=== PATIENT | female | born 1955 | race Caucasian/White ===

== ENCOUNTER 2024-08-20 10:52 | Outpatient (CLI) | payer MEDICARE ==
[2024-08-20 11:51] LABS: #Basophils 0.07 10x3/uL (0.0-0.2); #Eosinophils 0.31 10x3/uL (0.0-0.5); #Monocytes 0.52 10x3/uL (0.0-1.1); #Neutrophils 2.42 10x3/uL (1.5-8.4); %Basophils 1.3 % (0.0-2.0); %Eosinophils 5.7 % (0.0-6.0); %Lymphocytes 38.5 % (18.0-47.0); %Monocytes 9.5 % (0.0-10.0); %Neutrophils 44.3 % (40.0-75.0); Hematocrit 41.1 % (34.9-44.5); Hemoglobin 13.4 g/dL (12.0-15.5); Mean Corpuscular HGB CONC 32.6 g/dL (32.0-36.0); Mean Corpuscular Hemoglobin 30.5 pg (27.0-33.0); Mean Corpuscular Volume 93.4 fL (81.6-98.3); Mean Platelet Volume 9.3 fL (7.4-10.4); Platelet Count 243 10x3/uL (150-450); RBC Distribution Width 13.2 % (11.5-14.5); White Blood Cell (WBC) Count 5.5 10x3/uL (3.5-10.5)
[2024-08-20 12:06] LABS: Anion Gap 12 mmol/L (10-20); BUN (Urea Nitrogen) 16 mg/dL (9.8-20.1); Calc. Creatinine Clearance 0 mL/min (70-130); Calcium 9.9 mg/dL (7.8-10.44); Carbon Dioxide 26 mmol/L (23-31); Chloride 108 mmol/L (98-107); Estimated GFR 95; Glucose 82 mg/dL (80-115); Potassium 4.1 mmol/L (3.5-5.1); Sodium 142 mmol/L (136-145)
== END 2024-08-20 10:53 | disposition home or self-care (01) ==
LOC: CSHLAB 10:52
PROVIDERS: ATTEND Specialist
DX: Z01.818 Encounter for other preprocedural examination (principal); D05.12 Intraductal carcinoma in situ of left breast; J44.9 Chronic obstructive pulmonary disease, unspecified
CPT/HCPCS: 71046; 80048; 85025; 93005; 93010

== ENCOUNTER 2024-09-15 08:07 | Day surgery (SDC) | payer MEDICARE ==
[2024-09-15] MEDS ORDERED: Acetaminophen 500 MG TAB ONE (08:53)
[2024-09-15] MEDS ORDERED: Ketorolac Tromethamine 30 MG (1 mL) VIAL ONE (08:53)
[2024-09-15] MEDS ORDERED: Scopolamine 1 mg/72 hour Patch ONE (08:56)
[2024-09-15] MEDS ORDERED: Bupivacaine/Epinephrine 0.25% 30 ML VIAL ONE (09:06)
[2024-09-15] MEDS ORDERED: Lidocaine 1% PF 5 ML VIAL ONE (09:11)
[2024-09-15] MEDS ORDERED: Dexamethasone 20 MG/5 ML VIAL ONE (09:11)
[2024-09-15] MEDS ORDERED: Ondansetron PF 4 MG/2 ML Vial ONE (09:11)
[2024-09-15] MEDS ORDERED: PROPOFOL 20 ML ONE (09:11)
[2024-09-15] MEDS ORDERED: fentaNYL 50 mcg/mL 1 mL Vial ONE (09:12)
[2024-09-15] MEDS ORDERED: CEFAZOLIN 2 GM VIAL ONE (09:19)
[2024-09-15] MEDS ORDERED: Glycopyrrolate 0.2 MG/ML 5 ML SYRINGE ONE (09:57)
[2024-09-15] MEDS ORDERED: traMADol HCl 50 MG TAB ONE (11:21)
== END 2024-09-15 12:10 | disposition home or self-care (01) ==
LOC: CSHSDC 08:07
PROVIDERS: ATTEND Specialist
PROC: 0HTU0ZZ Resection of Left Breast, Open Approach (ICD-10-PCS; principal; 2024-09-15)
DX: D05.12 Intraductal carcinoma in situ of left breast (principal); N64.1 Fat necrosis of breast; R92.1 Mammographic calcification found on diagnostic imaging of breast; N60.82 Other benign mammary dysplasias of left breast; I10 Essential (primary) hypertension; K21.9 Gastro-esophageal reflux disease without esophagitis; N60.12 Diffuse cystic mastopathy of left breast; Z90.710 Acquired absence of both cervix and uterus; Z98.890 Other specified postprocedural states; Z87.891 Personal history of nicotine dependence; Z79.899 Other long term (current) drug therapy; Z88.5 Allergy status to narcotic agent; Z88.8 Allergy status to other drugs, medicaments and biological substances
CPT/HCPCS: 19301; A6258; C1713; J1100; J1885; J2405; J2704; J3010; 88307

== ENCOUNTER 2025-08-26 10:19 | Outpatient (CLI) | payer MEDICARE | END 2025-08-26 10:20 | disposition home or self-care (01) | LOC: CSHMAMMO 10:19 | PROVIDERS: ATTEND Specialist | DX: Z08 Encounter for follow-up examination after completed treatment for malignant neoplasm (principal); Z85.3 Personal history of malignant neoplasm of breast | CPT/HCPCS: 77066; G0279 ==